=== PATIENT | female | born 1960 | race Caucasian/White ===

== ENCOUNTER 2017-10-02 20:59 | Emergency (ER) | payer OTHER ==
[~2017-10-02] VITALS: Ht 165.1 cm; Wt 91.0 kg
[~2017-10-02 20:59] MED LIST: HYDR25TA6 PO
[2017-10-02] MEDS ORDERED: METOCLOPRAMIDE 5 MG/ML, 2ML IVPush ONE (21:30)
[2017-10-02] MEDS ORDERED: MORPHINE SULFATE 4 MG/ML, 1ML IVPush PRN (21:30)
[2017-10-02] MEDS ORDERED: ACETAMINOPHEN 500 MG TABLET PO ONE (21:30)
[2017-10-02] MEDS ORDERED: DIPHENHYDRAMINE 50 MG/ML, 1ML IVPush ONE (21:30)
[2017-10-02] MEDS ORDERED: SODIUM CHLORIDE 0.9% 1,000ML IVBOLUS ONE (21:30)
[2017-10-02] MEDS ORDERED: ACETAMINOPHEN 500 MG TABLET ONE (21:35)
[2017-10-02] MEDS ORDERED: morphine SULFATE 10 MG/ML, 1ML ONE (21:35)
[2017-10-02] MEDS ORDERED: METOCLOPRAMIDE 5 MG/ML, 2ML ONE (21:36)
[2017-10-02] MEDS ORDERED: DIPHENHYDRAMINE 50 MG/ML, 1ML ONE (21:36)
[2017-10-02 21:54] LABS: HEMATOCRIT 37.7 % (34.6-47.8); HEMOGLOBIN 12.8 g/dL (11.7-16.4); WHITE BLOOD COUNT 6.4 x10^3/uL (3.4-10)
[2017-10-02 22:06] LABS: ASPARTATE AMINO TRANSFERASE 26 U/L (15-37); BLOOD UREA NITROGEN 11 mg/dL (7-18)
[2017-10-02 22:27] LABS: RAPID INFLUENZA A POSITIVE (Negative); RAPID INFLUENZA B Negative (Negative)
[2017-10-02 22:56] VITALS: BP 136/60
[2017-10-02] MEDS ORDERED: KETOROLAC 60 MG/2 ML IVPush ONE (23:00)
== END 2017-10-02 23:07 | disposition home or self-care (01) ==
LOC: ED 23:06
DX: J11.1 Influenza due to unidentified influenza virus with other respiratory manifestations (principal); F17.200 Nicotine dependence, unspecified, uncomplicated; I10 Essential (primary) hypertension; Z88.0 Allergy status to penicillin
CPT/HCPCS: 36415; 70450; 71010; 80053; 83605; 84145; 85025; 85610; 87040; 87400; 96361; 96374; 96375; 99285; J1200; J2765; J7030

== ENCOUNTER 2019-11-13 09:38 | Emergency (ER) | payer OTHER ==
[~2019-11-13] VITALS: Ht 165.1 cm; Wt 92.4 kg
[2019-11-13 11:26] LABS: ANION GAP 10 mmol/L (5-15); CALCIUM 9.5 mg/dL (8.5-10.1); CHLORIDE 104 mmol/L (98-107)
--- NOTE | 2019-11-13 11:33 | NUR ---
FROM LOBBY TO ROOM AT THIS TIME.
[2019-11-13 11:44] LABS: BASOPHILS # (AUTO) 0.06 x10^3/uL (0-0.1); BASOPHILS % (AUTO) 1 % (0-1); EOSINOPHILS # (AUTO) 0.05 x10^3/uL (0-0.4); EOSINOPHILS % (AUTO) 0 % (1-7); LYMPHOCYTES # (AUTO) 2.89 x10^3/uL (1-3.4); LYMPHOCYTES % (AUTO) 23 % (22-44); MD NO; MEAN CORPUSCULAR HGB CONC 33.3 g/dL (32.4-35.8); MEAN CORPUSCULAR VOLUME 93.2 fL (80-100); MEAN PLATELET VOLUME 8.9 fL (7.4-10.4); MONOCYTES # (AUTO) 0.56 x10^3/uL (0.2-0.8); MONOCYTES % (AUTO) 5 % (2-9); NEUTROPHILS # (AUTO) 8.87 x10^3/uL (1.8-6.8); NEUTROPHILS % (AUTO) 71 % (42-75); PLATELET COUNT 287 x10^3/uL (130-400); RED BLOOD COUNT 4.39 x10^6/uL (3.82-5.3); RED CELL DISTRIBUTION WIDTH 13.2 % (9.6-15.2)
--- NOTE | 2019-11-13 11:44 | NUR ---
THIS IS A 58 YO F W/ C/O RT SIDED FACIAL NUMBNESS POST RIGHT EAR MIDDLE INFT TX. PT IS SPEAKING IN FULL SENTENCES. A&OX4. VS STABLE. RESTING ON GURNEY BEING EVALUATED BY JACOB. MARIANNE. AWAITING ORDERS.
--- NOTE | 2019-11-13 12:29 | NUR ---
NEW ORDER RECIEVED FOR CT. AWAITING TESTING AT THIS TIME.
[2019-11-13 12:43] VITALS: BP 140/89
--- NOTE | 2019-11-13 12:45 | NUR ---
PT RESTING ON GURNEY AWAITING CT. VS UPDATED. CALL LIGHT IN REACH. DENIES FURTHER NEEDS AT THIS TIME.
--- NOTE | 2019-11-13 13:24 | NUR ---
F/U CALL PLACED TO [facility] 2 PT AHEAD OF PT
--- NOTE | 2019-11-13 14:14 | NUR ---
ALL RESULTS BACK. PT IS UP FOR RECHECK.
== END 2019-11-13 14:39 | disposition home or self-care (01) ==
LOC: ED 12:52
DX: G51.0 Bell's palsy (principal); J32.0 Chronic maxillary sinusitis; I10 Essential (primary) hypertension; Z87.891 Personal history of nicotine dependence
CPT/HCPCS: 36415; 70450; 80048; 85025; 93005; 99284

== ENCOUNTER 2020-07-31 04:53 | Emergency (ER) | payer OTHER ==
[~2020-07-31] VITALS: Ht 165.1 cm; Wt 99.4 kg
[2020-07-31 06:30] VITALS: BP 189/100
--- NOTE | 2020-07-31 06:31 | NUR ---
PT LAYING IN POSITION OF COMFORT. ALL NEEDS MET AT THIS TIME.
--- NOTE | 2020-07-31 07:29 | NUR ---
Patient/Caregiver given discharge instructions and they have confirmed that they understand the instructions. Patient ambulatory with steady gait.
--- NOTE | 2020-07-31 07:30 | NUR ---
MARCE WRAP TO RIGHT KNEE AND LOWER LEG. PT VERBALIZES UNDERSTANDING. DISTAL CSM +
== END 2020-07-31 07:30 | disposition home or self-care (01) ==
LOC: ED 06:07
DX: M25.561 Pain in right knee (principal); I10 Essential (primary) hypertension
CPT/HCPCS: 93005; 99284